=== PATIENT | female | born 2000 | race Asian ===

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

== ENCOUNTER → 2022-01-31 | Outpatient (CLI) | payer OTHER | END | disposition home or self-care (01) | LOC: LAB 10:06 | PROVIDERS: ATTEND Nurse Practitioner Family | DX: R19.7 Diarrhea, unspecified (principal) ==

== ENCOUNTER → 2022-08-01 | Outpatient (CLI) | payer OTHER ==
[2022-08-02 08:11] LABS: HBSAG Negative (Negative); HEP B CORE AB, IGM Negative (Negative); HEPATITIS C ANTIBODY Non Reactive (Non Reactive)
[2022-08-03 21:06] LABS: TB1 Ag VALUE 0.07 IU/mL (.)
== END | disposition home or self-care (01) ==
LOC: LAB 14:22
PROVIDERS: ATTEND Nurse Practitioner Family
DX: Z11.1 Encounter for screening for respiratory tuberculosis (principal); Z11.59 Encounter for screening for other viral diseases

== ENCOUNTER → 2022-09-21 | Outpatient (CLI) | payer OTHER | END | disposition home or self-care (01) | LOC: US 01:38 | PROVIDERS: ATTEND Nurse Practitioner | DX: N94.10 Unspecified dyspareunia (principal) ==

== ENCOUNTER → 2022-11-09 | Outpatient (CLI) | payer OTHER | END | disposition home or self-care (01) | LOC: US 00:54 | PROVIDERS: ATTEND Nurse Practitioner | DX: N83.299 Other ovarian cyst, unspecified side (principal) ==

== ENCOUNTER → 2022-12-27 | Outpatient (CLI) | payer OTHER | END | disposition home or self-care (01) | LOC: CARD 01:50 | PROVIDERS: ATTEND Nurse Practitioner Family | DX: R00.0 Tachycardia, unspecified (principal) ==

== ENCOUNTER → 2023-04-26 | Outpatient (CLI) | payer OTHER ==
[2023-04-26 15:11] LABS: FREE T4 1.19 ng/dl (0.89-1.76)
== END | disposition home or self-care (01) ==
LOC: LAB 14:09
PROVIDERS: ATTEND Internal Medicine Cardiovascular Disease
DX: R00.2 Palpitations (principal)

== ENCOUNTER → 2023-10-07 | Outpatient (CLI) | payer BC ==
[2023-10-10 03:06] LABS: TB1 Ag VALUE 0.02 IU/mL (.)
== END | disposition home or self-care (01) ==
LOC: LAB 09:48
PROVIDERS: ATTEND Nurse Practitioner Family
DX: Z11.1 Encounter for screening for respiratory tuberculosis (principal)